=== PATIENT | male | born 1960 | race Caucasian/White ===

== ENCOUNTER 2017-12-29 06:25 | Emergency (ER) | payer OTHER, BC ==
[2017-12-29 06:40] VITALS: BMI 30.5
[2017-12-29] MEDS ORDERED: ASPIRIN 325 MG TABLET PO ONE (07:29)
[2017-12-29] MEDS ORDERED: SODIUM CHLORIDE 1,000 ML IV STA (07:30)
[2017-12-29] MEDS ORDERED: ASPIRIN 325 MG TABLET ONE (07:31)
[2017-12-29] MEDS ORDERED: HEPARIN NA (PORCINE) 5,000 UNITS/ML 1ML VIAL IVPUSH PRN (07:35)
[2017-12-29] MEDS ORDERED: HEPARIN - 25,000 UNIT in SODIUM CHLORIDE 495 ML IV SCH (07:45)
[2017-12-29] MEDS ORDERED: TICAGRELOR 60 MG TABLET PO ONE (07:47)
[2017-12-29] MEDS ORDERED: METOPROLOL TARTRATE 5 MG/5 ML VIAL IVPUSH ONE (07:48)
[2017-12-29] MEDS ORDERED: ATORVASTATIN CA 80 MG TABLET (FP) PO ONE (07:48)
[2017-12-29] MEDS ORDERED: METOPROLOL TARTRATE 5 MG/5 ML VIAL ONE (07:52)
[2017-12-29] MEDS ORDERED: HEPARIN NA (PORCINE) 5,000 UNITS/ML 1ML VIAL ONE (07:53)
[2017-12-29] MEDS ORDERED: ATORVASTATIN CA 80 MG TABLET (FP) ONE (07:53)
[2017-12-29] MEDS ORDERED: HEPARIN INFUSION - 25,000 UNITS/500 ML INFUS.BAG IVPB ONE (07:54)
[2017-12-29] MEDS ORDERED: TICAGRELOR 90 MG TABLET PO ONE (08:00)
--- NOTE | 2017-12-29 08:05 | PDOC ---
History of Present Illness - General Chief Complaint: Shortness of Breath Stated Complaint: VOMITING/SHORTNESS OF BREATH Time Seen by Provider: 12/29/17 07:16 History Source: Patient - History of Present Illness Initial Comments: 12/29/17 08:04 57M with pmh of diabetes, HTN and depression come to the ED presenting with sob , chest pain and episodes of vomiting and diarrhea starting at 4:30 am. He woke up at that time short of breath. He checked his blood sugar which was in the 90' s, ate a banana and went to bathroom to find he was having lose stool, after which he vomited and started feeling non-radiating midsternal chest pain. He reports a similar chest pain episode 2 weeks ago that resolved after he ingested 325mg ASA x6 Past History - Past Medical History Allergies/Adverse Reactions: Allergies Allergy/AdvReac Type Severity Reaction Status Date / Time No Known Allergies Allergy Verified 12/29/17 06:37 Home Medications: Ambulatory Orders Aspirin [ASA -] 81 mg PO DAILY 12/29/17 BUPROPion HCL "SR" [Wellbutrin Sr [Nf]] 150 mg PO DAILY 12/29/17 Escitalopram Oxalate [Lexapro -] 20 mg PO DAILY 12/29/17 Insulin (Levemir) [Levemir Flexpen -] 25 units SQ BID 12/29/17 Sertraline HCl [Zoloft] 25 mg PO DAILY 12/29/17 COPD: No Diabetes: Yes HTN: Yes - Suicide/Smoking/Psychosocial Hx Smoking History: Never smoked Have you smoked in the past 12 months: No Information on smoking cessation initiated: No Hx Alcohol Use: No Drug/Substance Use Hx: No Substance Use Type: None Review of Systems - Review of Systems Constitutional: No: Symptoms Reported HEENTM: No: Symptoms Reported Respiratory: Yes: See HPI Cardiac (ROS): Yes: See HPI ABD/GI: Yes: See HPI : No: Symptoms Reported Musculoskeletal: No: Symptoms Reported Neurological: No: Symptoms reported *Physical Exam - Vital Signs Last Vital Signs Temp Pulse Resp BP Pulse Ox 97.8 F 95 H 18 175/99 97 12/29/17 08:21 12/29/17 08:21 12/29/17 08:21 12/29/17 08:21 12/29/17 08:42 - Physical Exam General Appearance: Yes: Nourished, Appropriately Dressed. No: Apparent Distress HEENT: positive: EOMI, BRIANNA, Normal ENT Inspection Neck: negative: Tender Respiratory/Chest: positive: Lungs Clear, Normal Breath Sounds, Labored Respiration. negative: Chest Tender Cardiovascular: positive: Regular Rhythm, Regular Rate, S1, S2 Gastrointestinal/Abdominal: positive: Normal Bowel Sounds, Flat, Soft. negative : Tender Extremity: positive: Normal Capillary Refill Integumentary: positive: Normal Color, Dry, Warm Neurologic: positive: Fully Oriented, Alert, Normal Mood/Affect ED Treatment Course - LABORATORY CBC & Chemistry Diagram: 12/29/17 07:30 12/29/17 07:40 - ADDITIONAL ORDERS Additional order review: 12/29/17 07:30 RBC 5.56 MCV 85.9 MCHC 32.9 RDW 14.1 MPV 10.7 Neutrophils % 90.6 H D Lymphocytes % 3.4 L D Monocytes % 5.4 Eosinophils % 0.4 Basophils % 0.2 - Medications Given in the ED: ED Medications Discontinued Medications Generic Name Dose Route Start Last Admin Trade Name Julioq PRN Reason Stop Dose Admin Aspirin 325 mg 12/29/17 07:29 12/29/17 07:30 Asa - PO 12/29/17 07:30 325 mg ONCE ONE Administration Atorvastatin Calcium 80 mg 12/29/17 07:48 12/29/17 07:54 Lipitor - PO 12/29/17 07:49 80 mg ONCE ONE Administration Heparin Sodium (Porcine) 5,000 unit 12/29/17 07:35 12/29/17 07:55 Heparin - IVPUSH 5,000 unit PRN PRN Administration Heparin Sodium Chloride 1,000 mls @ 1,000 mls/hr 12/29/17 07:30 12/29/17 07:30 Normal Saline - IV 12/29/17 08:29 1,000 mls/hr ASDIR STA Administration Metoprolol Tartrate 5 mg 12/29/17 07:48 12/29/17 07:54 Lopressor Injection - IVPUSH 12/29/17 07:49 5 mg ONCE ONE Administration Ticagrelor 180 mg 12/29/17 08:00 12/29/17 08:02 Brilinta - PO 12/29/17 08:01 180 mg ONCE ONE Administration Medical Decision Making - Medical Decision Making 12/29/17 08:42 57 with sob and vhest pain wince 4:30am EKG showing st elevation on lead IIm III and aVF. Patient started on heparin and aspiring, labs drawn and transfer started to the prosthetics lab technician at [facility]. Patient hemodynamically stable, consented to transfer after explanation of condition and treatment modalities. 12/29/17 08:52 *DC/Admit/Observation/Transfer Diagnosis at time of Disposition: stemi, ST elevation myocardial infarction (STEMI) of inferior wall - Discharge Dispostion Disposition: TRANSFER ACUTE CARE/OTHER HOSP Condition at time of disposition: Stable - Referrals - Patient Instructions - Post Discharge Activity - Transfer to Acute Care Facility Receiving Facility: Other hosp. not listed ([facility])
--- NOTE | 2017-12-29 08:16 | PDOC ---
Attending Attestation - Resident Resident Name: DennisZeeshan - ED Attending Attestation I have performed the following: I have examined & evaluated the patient, The case was reviewed & discussed with the resident, I agree w/resident's findings & plan, Exceptions are as noted - HPI HPI: 12/29/17 08:10 The patient is a 57 year old male, with a significant past medical history of DM , HTN, HLD, who presents to the emergency department with chest pain and dyspnea since 5AM this morning. Pt states that he awoke with GI symptoms initially, feeling nauseous. He thought that this was due to his sugar being low , but when he checked it, it was 90. Pt then had a few episodes of watery brown diarrhea. Shortly after, he began to experience chest pain and shortness of breath, which have persisted to now. The patient denies headache and dizziness. The patient denies fever, chills, nausea, vomit, diarrhea and constipation. The patient denies dysuria, frequency , urgency and hematuria. Allergies: NKDA " - Physicial Exam PE: 12/29/17 08:12 """GENERAL: Awake, alert, and fully oriented, in no acute distress HEAD: No signs of trauma EYES: PERRLA, EOMI, sclera anicteric, conjunctiva clear ENT: Auricles normal inspection, hearing grossly normal, nares patent, oropharynx clear without exudates. Moist mucosa NECK: Nontender, no stepoffs, Normal ROM, supple, no lymphadenopathy, JVD, or masses LUNGS: Breath sounds equal, clear to auscultation bilaterally. No wheezes, and no crackles HEART: Regular rate and rhythm, normal S1 and S2, no murmurs, rubs or gallops ABDOMEN: Soft, nontender, normoactive bowel sounds. No guarding, no rebound. No masses EXTREMITIES: Normal range of motion, no edema. No clubbing or cyanosis. No cords, erythema, or tenderness NEUROLOGICAL: Cranial nerves II through XII intact. 5/5 strength and sensation in all extremities, Normal speech, normal gait SKIN: Warm, Dry, normal turgor, no rashes or lesions noted. """ - Medical Decision Making 12/29/17 08:14 57 M with HTN, HLD, DM presenting with CP/SOB. EKG shows STEMI. - Labs, coags, trop - Aspirin, brilinta, atorvastatin, heparin bolus - Cards Dr. Faulkner consulted - Txfer to [facility] laboratory manager CODE RED activated Heart Score/ECG Review - History History: Highly suspicious - Electrocardiogram EKG: Significant ST-depression - Age Age: 45-65 - Risk Factors Risk Factors Heart Score: Yes Hx Hypercholesterolemia, Yes Hx Hypertension, Yes Hx Diabetes - ECG Impressions Comment:: 12/29/17 08:12 STEMI NSR, ST elevations in II, III, aVF, with depressions in I and aVL. no T wave abnormalities. intervals wnl. rate 98
[2017-12-29 08:22] VITALS: BP 175/99; PULSE 95; TEMP 97.8
[2017-12-29 08:43] LABS: BASO % 0.2 % (0-2.0); EOS % 0.4 % (0-4.5); HEMATOCRIT 47.7 % (35.4-49); HEMOGLOBIN 15.7 GM/dL (11.7-16.9); LYMPH % 3.4 % (8-40); MCH 28.3 pg (25.7-33.7); MCHC 32.9 g/dl (32.0-35.9); MEAN CELL VOLUME 85.9 fl (80-96); MEAN PLT VOLUME 10.7 fl (7.5-11.1); MONO % 5.4 % (3.8-10.2); NEUT % 90.6 % (42.8-82.8); PLATELET COUNT 231 K/MM3 (134-434); RBC 5.56 M/mm3 (4.00-5.60); RDW 14.1 % (11.9-15.9)
[2017-12-29 08:47] LABS: INR 0.97 (0.82-1.09)
[2017-12-29 08:50] LABS: ACTIVATED PTT 26.9 SECONDS (26.9-34.4)
[2017-12-29 09:03] LABS: ANION GAP 13 (8-16); CALCIUM 8.8 mg/dL (8.5-10.1); CHLORIDE 105 mmol/L (98-107); CO2 21 mmol/L (21-32); CREATININE 1.7 mg/dL (0.7-1.3); GLUCOSE,RANDOM 185 mg/dL (74-106); POTASSIUM 4.1 mmol/L (3.5-5.1); SGOT/AST 99 U/L (15-37); SGPT/ALT 31 U/L (12-78); SODIUM 139 mmol/L (136-145)
[2017-12-29 09:05] LABS: ALK PHOS 104 U/L (45-117); TOT PROT 7.3 g/dl (6.4-8.2)
[2017-12-29 09:16] LABS: BLOOD UREA NITROGEN 28 mg/dL (7-18)
--- NOTE | 2017-12-29 23:22 | EKG ---
Test Reason : Blood Pressure : / mmHG Vent. Rate : 098 BPM Atrial Rate : 098 BPM P-R Int : 164 ms QRS Dur : 104 ms QT Int : 374 ms P-R-T Axes : 061 -36 096 degrees QTc Int : 477 ms NORMAL SINUS RHYTHM LEFT AXIS DEVIATION ST ELEVATION CONSIDER INFERIOR INJURY OR ACUTE INFARCT ACUTE OH / STEMI Consider right ventricular involvement in acute inferior infarct ABNORMAL ECG NO PREVIOUS ECGS AVAILABLE Confirmed by JO ANN GRACIA MD ([id number]) on 12/29/2017 11:21:50 PM Referred By: Confirmed By:JO ANN GRACIA MD
--- NOTE | 2017-12-29 23:22 | EKG ---
Test Reason : Blood Pressure : / mmHG Vent. Rate : 097 BPM Atrial Rate : 097 BPM P-R Int : 166 ms QRS Dur : 104 ms QT Int : 374 ms P-R-T Axes : 050 -23 088 degrees QTc Int : 474 ms NORMAL SINUS RHYTHM POSSIBLE ANTEROLATERAL INFARCT , AGE UNDETERMINED INFERIOR INJURY PATTERN ACUTE MN / STEMI Consider right ventricular involvement in acute inferior infarct ABNORMAL ECG WHEN COMPARED WITH ECG OF 29 DEC 2017 07:22:08 NO SIGNIFICANT CHANGE WAS FOUND Confirmed by JO ANN GRACIA MD ([id number]) on 12/29/2017 11:21:36 PM Referred By: Confirmed By:JO ANN GRACIA MD
--- NOTE | 2017-12-31 16:57 | PN ---
Progress Note (short form) - Note Progress Note: Patient transferred to [facility] for acute inferior wall ND. Thrombotic mid RCA lesion underwent mechanical thrombectomy with Pronto catheter and implant LYNNETTE 4.0x18 post dilated with 4.5x15 mm balloon at 12 JEY. Mild LV dysfunction with moderate diaphragmatic hypokinesis, mildly elevated LVEDP, post PCI distal embolization treated with vasodilators and Integrillin bolus with resolution of ST segment changes. Angioseal deployed right GLASS INSTALLER access site, stable for d/c home 12/21/2017 with f/u with me in office .
== END 2017-12-29 08:30 | disposition short-term general hospital (02) ==
LOC: JER 06:25
PROC: 3E0337Z Introduction of Electrolytic and Water Balance Substance into Peripheral Vein, Percutaneous Approach (ICD-10-PCS; principal; 2017-12-29)
PROC: 3E033GC Introduction of Other Therapeutic Substance into Peripheral Vein, Percutaneous Approach (ICD-10-PCS; 2017-12-29)
PROC: 3E033GC Introduction of Other Therapeutic Substance into Peripheral Vein, Percutaneous Approach (ICD-10-PCS; 2017-12-29)
DX: I21.19 ST elevation (STEMI) myocardial infarction involving other coronary artery of inferior wall (principal); I10 Essential (primary) hypertension; E11.9 Type 2 diabetes mellitus without complications; Z79.4 Long term (current) use of insulin; E78.00 Pure hypercholesterolemia, unspecified
CPT/HCPCS: 36415; 80053; 82550; 82553; 84484; 85025; 85610; 85730; 86850; 86900; 86901; 93005; 93010; 96361; 96374; 96375; 99285-25; J1644